=== PATIENT | female | born 1930 | race Caucasian/White ===

== ENCOUNTER → 2017-07-20 | Emergency (ER) | payer OTHER ==
[~2017-07-20] VITALS: Ht 154.9 cm; Wt 56.7 kg
[~2017-07-20] MED LIST: FENOFIBRIC ACI135 MG; GABAPENTIN300 MG
== END | disposition home or self-care (01) ==
LOC: ER 17:30
DX: M47.892 Other spondylosis, cervical region (principal); M54.2 Cervicalgia; R51 Headache

== ENCOUNTER 2018-10-25 08:16 | Emergency (ER) | payer OTHER ==
[~2018-10-25] VITALS: Ht 154.9 cm; Wt 57.6 kg
[2018-10-25] MEDS ORDERED: SYNTHROID50 MCG PO (08:37)
[2018-10-25] MEDS ORDERED: ARICEPT10 MG PO (08:37)
[2018-10-25] MEDS ORDERED: PEPCID40 MG PO (08:37)
[2018-10-25] MEDS ORDERED: NEURONTIN800 MG PO (08:37)
[2018-10-25] MEDS ORDERED: AVAPRO300 MG PO (08:38)
[2018-10-25] MEDS ORDERED: PROPRANOLOL HCL60 M1 PO (08:38)
== END 2018-10-25 11:16 | disposition home or self-care (01) ==
LOC: ER 08:16
DX: K29.60 Other gastritis without bleeding (principal)